=== PATIENT | male | born 1985 | race Caucasian/White ===

== ENCOUNTER → 2021-03-12 | Outpatient (CLI) | payer OTHER ==
--- NOTE | 2021-03-12 19:24 | CONS ---
CONSULTATION REASON FOR CONSULTATION: Sleep apnea. HISTORY: A 35-year-old male patient referred to me for sleep apnea evaluation. The patient has snoring and is excessively fatigued and sleepy during the day. He works for a local [employer]. He gets quite tired during the day yet he does not get to the point where he falls asleep or he loses functionality. He is going to bed around 8 p.m., waking up at 5:00 am in the morning. On average he takes around 6-7 hours of sleep. On weekends she sleeps longer between 10:00 PM till 9:00 am in the morning. Despite all this, he gets quite tired and sleepy during the day. He has gained around 40 pounds over the past 10 years. He prefers to sleep on his side. He wakes up probably once or twice in the middle of night to utilize the bathroom. No sleepwalking. No sleep talking. No choking or gasping for air. No grinding of the teeth. No anxiety or panic attacks. His current Ben Wheeler score is at 5. PAST MEDICAL HISTORY: Degenerative arthritis and heartburn. PAST SURGICAL HISTORY: Negative. DRUG ALLERGIES: Penicillins. OUTPATIENT MEDICATION: Includes a pain reliever, probably a nonsteroidal anti-inflammatory medication along with an acid pill, probably a PPI. SOCIAL HISTORY: He chews tobacco. He does not smoke. He does not drink alcohol. No history of substance abuse. He drinks 2 L of Coke or Dr. Pepper on a daily basis. FAMILY HISTORY: His mother has COPD. Father had an unknown cancer. REVIEW OF SYSTEMS: Fourteen-point review of system was done, positive findings are mentioned in history of present illness. PHYSICAL EXAMINATION: BP is 130/89, pulse 64, respirations 18, temperature 98.1 saturation is 96% 97% on room air. Her body mass index is 37.6. Height is 5 feet 10 inches, weight is 268. Neck circumference 18 inches. GENERAL: Appearance is calm and comfortable. HEAD: Atraumatic normocephalic. NECK: Supple there is no JVD. No goiter or neck masses Mallampati class 4. LUNGS: Diminished otherwise clear. HEART: Heart sounds are regular rate and rhythm normal S1, S2 no murmurs. ABDOMEN: Soft nontender no organomegaly. EXTREMITIES: No edema no cyanosis or clubbing. NEUROLOGIC: Awake alert. There is no focal neurological deficits. PSYCHIATRY: Negative for anxiety or depression. IMPRESSION: 1. Fatigue and hypersomnia currently under investigation Ben Wheeler Score is at 5. 2. Loud snoring. 3. Obesity with a BMI of 37.6. PLAN: 1. Home sleep study looking for any significant sleep breathing disorder. 2. Encourage weight loss. 3. Optimize sleep hygiene measures. 4. We will contact the patient back with the results of the home sleep study and decide on treatment accordingly. MMODL / IJN: [id number] /
== END | disposition home or self-care (01) ==
LOC: SLEEP 08:25
PROVIDERS: ATTEND Internal Medicine Critical Care Medicine
DX: G47.10 Hypersomnia, unspecified (principal); E66.9 Obesity, unspecified; R06.83 Snoring; M19.90 Unspecified osteoarthritis, unspecified site; F17.220 Nicotine dependence, chewing tobacco, uncomplicated; Z88.0 Allergy status to penicillin; Z68.37 Body mass index [BMI] 37.0-37.9, adult
CPT/HCPCS: 99202